=== PATIENT | female | born 1990 | race Caucasian/White ===

== ENCOUNTER 2018-04-13 04:07 | Emergency (ER) | payer OTHER ==
[~2018-04-13] VITALS: Ht 167.6 cm; Wt 74.8 kg
[~2018-04-13 04:07] MED LIST: CLARITIN-D1 TAB.SR1 PO; NASONEX17 GM NS; ZITHROMAX200 MG PO
[2018-04-13] MEDS ORDERED: KETO10TA2 PO (06:14)
== END 2018-04-13 06:40 | disposition home or self-care (01) ==
LOC: ER 04:07
DX: S50.01XA Contusion of right elbow, initial encounter (principal); W10.8XXA Fall (on) (from) other stairs and steps, initial encounter; Y93.89 Activity, other specified; Y92.098 Other place in other non-institutional residence as the place of occurrence of the external cause; Y99.8 Other external cause status